=== PATIENT | female | born 1995 | race Caucasian/White ===

== ENCOUNTER 2018-09-13 21:18 | Emergency (ER) | payer MEDICARE, MEDICAID, SELFPAY ==
[2018-09-13 21:32] VITALS: BP 106/57; PULSE 66; RESP 18; TEMP 36.2; O2SAT 97
--- NOTE | 2018-09-13 21:40 | DI.CT_ITS ---
SYMPTOMS/DIAGNOSIS: RIGHT FLANK PAIN RENAL COLIC CT: No priors for comparison. There is a hyperdense focus in the proximal to mid right ureter (series 5 image 222 and series 4 image 38). This may represent a small stone. There is mild prominence of the renal collecting system proximally. No other renal stones are seen. The left kidney shows no evidence of nephrolithiasis or hydronephrosis. The urinary bladder is intact. There is mild diffuse thickening of the wall of the urinary bladder. This may be due to underdistention. An inflammatory or infectious process cannot be excluded. The reproductive organs are unremarkable. The unenhanced visualized portions of the liver, spleen, pancreas, gallbladder and adrenal glands are unremarkable. The aorta is of normal caliber. The bowel shows no evidence of obstruction. No significant abdominal or pelvic adenopathy, ascites or pneumoperitoneum is seen. The bones show no acute abnormality. IMPRESSION: 1. Small hyperdense area seen in the proximal to mid right ureter suspicious for a stone. Mild prominence of the collecting system proximal to this region. 2. Question of diffuse bladder wall thickening; underdistention versus an infectious or inflammatory cystitis.
--- NOTE | 2018-09-13 21:42 | ED.GENADUL_ITS ---
Discharge Plan Disposition Patient Disposition: HOME Condition: Stable Discharge Details Chief Complaint: Abd Prob Clinical Impression: Rt flank pain, UTI (urinary tract infection) Primary Care Provider: Delma Covington V ED Provider: Emile Medina Home Meds and New Rx's Prescriptions: New ciprofloxacin HCl 500 mg tablet 500 mg PO BID Qty: 14 RF: 0 ondansetron 4 mg tablet,disintegrating 4 mg PO TID PRN (Reason: nausea and vomiting) 5 Days Qty: 30 RF: 0 oxycodone 5 mg tablet 5 mg PO Q6H PRN (Reason: pain) Qty: 7 RF: 0 No Action acetazolamide 250 mg tablet 250 mg PO BID Qty: 60 RF: 0 Discharge Instructions Additional Instructions: Your blood work did not show any significant abnormalities. Your cat scan showed a likely urinary tract infection and debris. There is a small chance that the debris is a very small kidney stone but is more likely due to the infection For pain take 1000mg tylenol and 600mg ibuprofen every 6 hours. If you need additional pain relief take 1 oxycodone For nausea take zofran as needed as prescribed Follow up with your primary care provider if symptoms continue in 1-2 weeks if you have severe worsening of pain, persistent vomit return to the emergency department for reevaluation Medical Decision Making 23 yo female has had intermittent right lower back pain today without any trauma, fevers, or chills nor n/v. She has had some mild rlq pain as well.She has no abdominal tenderness on exam at this time so doubt appendicitis. Given location of pain could be muscle spasm vs back strain, but given intermittent nature of the edson and location will obtain renal colic ct to eval for possible kidney stone pt's lab work shows no caute findings, does have blood in urine. Awaiting ct CT shows possible stone fragments vs debris in proximal ureter, and bladder wall thickening. I suspect uti with pyelo, also could have small kidney stone. She is HD stable, tolerating PO and stable for d/c. Will start abx and advised f/u with pcp and return precautions given Differential Diagnosis pyelo, kidney stone, uti, muscle spasm, appendicitis Medical Records Medical records reviewed: Yes I reviewed the patient's medical records. Imaging Data Radiologic Study: Attestation: I personally reviewed and interpreted this imaging study as follows: Imaging: CT Scan Radiologist's impression: IMPRESSION: 1. Mild fullness of the right renal collecting system and proximal ureter, with ill-defined hyperdensity in the proximal-mid ureter, possibly small stone fragments or debris. Otherwise, no definite urinary tract stones identified. 2. Diffuse bladder wall thickening, suggesting lower urinary tract infection/cystitis. Correlate with clinical history and laboratory findings. Lab Data Lab results reviewed: Yes I reviewed the patient's lab results. HPI General Mode of arrival: ambulatory . Date/Time Provider Initiated Documentation: 09/13/18 21:19 . Limitations to Documentation: no limitations . Information obtained by: patient . History of Present Illness 23 year old F presents to the emergency department with the chief complaint of right lower back pain and abdominal pain, described as moderate, with intensity rated at 5. Quality is described as aching, Patient reports no radiation. Patient started experiencing this hour(s) (1) and it has been constant. No relieving factors improve symptom(s), No exacerbating factors reported . Patient did receive the following treatments prior to arrival, none Related Data Home Medications Medication Instructions Recorded Confirmed acetazolamide 250 mg tablet 250 mg PO BID #60 tab 08/07/18 09/13/18 ciprofloxacin HCl 500 mg PO BID #14 tab 09/13/18 ondansetron 4 mg PO TID PRN 5 Days #30 tab 09/13/18 oxycodone 5 mg PO Q6H PRN #7 tab 09/13/18 Previous Rx's Medication Instructions Recorded acetazolamide 250 mg tablet 250 mg PO BID #60 tab 08/07/18 ciprofloxacin HCl 500 mg PO BID #14 tab 09/13/18 ondansetron 4 mg PO TID PRN 5 Days #30 tab 09/13/18 oxycodone 5 mg PO Q6H PRN #7 tab 09/13/18 Allergies Allergy/AdvReac Type Severity Reaction Status Date / Time No Known Allergies Allergy Unverified 09/13/18 21:38 General Stated Complaint: Abd Prob GAGE: 3 Review of Systems Review of Systems All systems reviewed & are unremarkable except as noted in HPI and below Constitutional Denies chills and Denies fever(s) Cardiovascular Denies chest pain and Denies dyspnea Respiratory Denies cough and Denies dyspnea Gastrointestinal Denies abdominal pain, Denies nausea and Denies vomiting Musculoskeletal Denies joint swelling Integumentary/Breasts Denies rash Endocrine Denies heat intolerance PFSH Surgical History Myringotomy w/ PE (pressure equalizing) tubes Tonsillectomy and adenoidectomy Social History Smoking and Tabacco status: Never Exam Const General: no acute distress Orientation: alert HENMT Head: normal to inspection Ears: external ears normal General nose exam: external nose normal Mouth: moist mucous membranes Eyes General: appearance normal, both eyes and all related structures Neck Neck: normal visual inspection Resp Effort & Inspection: normal respiratory effort and able to speak in complete sentences Cardio Rate: regular rate GI Inspection: no abdominal wall ecchymosis Palpation: soft Skin General skin exam: no rashes or lesions noted Neuro General: alert and oriented x3 Extrem General: normal to inspection Psych Mental Status: mental status grossly normal Course Vital Signs Temperature 36.2 C L 09/13/18 21:32 Pulse 66 09/13/18 21:32 Respiratory Rate 18 09/13/18 21:32 Blood Pressure 106/57 L 09/13/18 21:32 Pulse Oximetry 97 09/13/18 21:32 Temperature 36.2 C L 09/13/18 21:32 Temperature Source Temporal Artery Scan 09/13/18 21:32 Pulse 66 09/13/18 21:32 Respiratory Rate 18 09/13/18 21:32 Respiratory Effort 09/13/18 21:32 Blood Pressure 106/57 L 09/13/18 21:32 Pulse Oximetry 97 09/13/18 21:32 Oxygen Delivery Method Room Air 09/13/18 21:32 Oxygen Flow Rate 0 09/13/18 21:32 Pain Level 9 09/13/18 21:32 Comment 09/13/18 21:32
[2018-09-13 22:05] LABS: Abs Immature Grans 0.04 k/cumm (0.0-0.09); Absolute Eosinophil Count 0.16 k/cumm (0.0-0.7); Basophils % 0.3; HCT 39.4 % (36.0-46.0); HGB 12.9 g/dL (12.0-15.5); Immature Grans % 0.3; Lymphocytes % 30.1; Mean Corp. HGB Concentration 32.7 g/dL (32.0-36.0); Mean Corpuscular Hemoglobin 28.9 pg (27.0-33.0); Mean Corpuscular Volume 88.1 fL (80-95); Mean Platelet Volume 10.5 fL (8.0-11.0); Monocytes % 7.5; Neutrophils % 60.8; Platelet Count 326 x1000/uL (130-400); RBC 4.47 m/cumm (4.00-5.20); RBC Distribution Width 14.6 % (11.7-14.6); White Blood Cell Count 15.96 k/cumm (4.4-10.8)
[2018-09-13 22:18] LABS: Absolute Basophil Count 0.05 k/cumm (0.0-0.2)
[2018-09-13] MEDS: Ketorolac 15 MG/ML VIAL IVP ×2 (22:21→22:55)
[2018-09-13] MEDS: Normal Saline 1,000 ML 1000 ML IV (22:23)
[2018-09-13 22:29] LABS: ALT 14 U/L (12-78); AST 9 U/L (15-37); Albumin 3.8 g/dL (3.4-5.0); Alkaline Phosphatase 72 U/L (46-116); Anion Gap 13.2 mmol/L (3-11); BUN 12 mg/dL (7-18); Bilirubin, Direct 0.06 mg/dL (0.00-0.20); Bilirubin, Total 0.2 mg/dL (0.2-1.0); CO2 22.8 mmol/L (21.0-32.0); CREATININE 0.83 mg/dL (0.55-1.02); Chloride 107 mmol/L (98-107); Glucose 117 mg/dL (70-100); Lipase 225 U/L (73-393); Potassium 3.2 mmol/L (3.5-5.1); Sodium 143 mmol/L (136-145); Total Protein 8.1 g/dL (6.4-8.2)
[2018-09-13 22:37] LABS: Calcium 8.7 mg/dL (8.5-10.1)
[2018-09-13 22:42] LABS: Bilirubin Negative (Negative); Blood Large (Negative); Clarity Clear; Glucose Negative (Negative); Ketones Trace mg/dL (Negative); Leukocyte Esterase Small (Negative); Nitrite Negative (Negative); Specific Gravity 1.025 (1.005-1.025); pH 6.5 (5-8)
[2018-09-13 22:50] LABS: Bacteria Few HPF (Negative); C & S Indicated? No/Sq. Contamination; Casts 10-20 Hyaline LPF (Negative); Crystals Negative HPF (Negative); Epithelial Cells Many HPF (Negative); Mucus Negative (Negative); RBC 20-50 (0-2)
--- NOTE | 2018-09-13 23:16 | DI.VRAD_ITS ---
EXAM: CT Abdomen and Pelvis Without Contrast EXAM DATE/TIME: 09/13/2018 9:40 PM CLINICAL HISTORY: 23 years old, female; Pain; Other: RT flank pain TECHNIQUE: Axial computed tomography images of the abdomen and pelvis without contrast. Coronal and sagittal reformatted images were created and reviewed. COMPARISON: No relevant prior studies available. FINDINGS: Lower thorax: No acute findings. ABDOMEN: Liver: Normal. No mass. Gallbladder and bile ducts: Normal. No calcified stones. No ductal dilation. Pancreas: Normal. No ductal dilation. Spleen: Normal. No splenomegaly. Adrenals: Normal. No mass. Kidneys and ureters: There is mild fullness of the right renal collecting system and proximal ureter. Subtle hyperdense area in the proximal-mid right ureter (series 4, image 38), possibly small stone fragments or debris. Otherwise, no definite urinary tract stones are seen. The unenhanced kidneys are otherwise unremarkable. Stomach and bowel: Normal. No obstruction. No mucosal thickening. Appendix: No evidence of appendicitis. PELVIS: Bladder: The urinary bladder is incompletely distended, with greater than expected diffuse wall thickening, suggesting lower urinary tract infection/cystitis. No calcified stones are seen. Reproductive: Unremarkable as visualized. ABDOMEN and PELVIS: Intraperitoneal space: Normal. No free air. No significant fluid collection. Bones/joints: No acute fracture. No dislocation. Soft tissues: Unremarkable. Vasculature: Normal. No abdominal aortic aneurysm. Lymph nodes: Normal. No enlarged lymph nodes. IMPRESSION: 1. Mild fullness of the right renal collecting system and proximal ureter, with ill-defined hyperdensity in the proximal-mid ureter, possibly small stone fragments or debris. Otherwise, no definite urinary tract stones identified. 2. Diffuse bladder wall thickening, suggesting lower urinary tract infection/cystitis. Correlate with clinical history and laboratory findings. Dictated and Authenticated by: Jake Oleary MD. Ordering:LEMUEL Baptiste MD
[2018-09-13] MEDS: oxyCODONE 5 MG TAB PO (23:38)
[2018-09-13] MEDS: oxyCODONE 5 MG TAB 10 MG PO (23:39)
[2018-09-13] MEDS: Ondansetron O.D.T. 4 MG TABEF PO (23:40)
[2018-09-13] MEDS: Ciprofloxacin 500 MG TAB PO (23:40)
[2018-09-13] MEDS: Ondansetron 4 MG/2 ML VIAL IVP (23:55)
[2018-09-14 00:39] VITALS: BP 110/58; PULSE 70; RESP 18; O2SAT 99
== END 2018-09-14 00:35 | disposition home or self-care (01) ==
PROVIDERS: Emergency Provider Emergency Medicine; PCP Pediatrics
DX: R10.9 Unspecified abdominal pain (principal); N39.0 Urinary tract infection, site not specified
CPT/HCPCS: 36415; 80053; 80076; 83690; 96361; 96374; 96375; 96376; 99284; 74176; 81003; 81015; 85025; J1885; J2405

== ENCOUNTER → 2018-10-28 14:14 | Outpatient (BNVA) | payer MEDICARE, MEDICAID, SELFPAY | PROVIDERS: PCP Pediatrics; Visit Provider Psychiatry & Neurology Neurology | DX: H93.293 Other abnormal auditory perceptions, bilateral (principal); F84.0 Autistic disorder | CPT/HCPCS: 99205; 99215 ==

== ENCOUNTER 2019-03-06 14:47 | Emergency (ER) | payer MEDICARE, MEDICAID, SELFPAY ==
[2019-03-06 14:55] VITALS: BP 125/99; PULSE 106; RESP 16; TEMP 36.8; O2SAT 97
[2019-03-06] MEDS: Ibuprofen 600 MG TAB PO (15:49)
--- NOTE | 2019-03-06 16:05 | W.ED.GENAD ---
Discharge Plan Disposition Patient Disposition: HOME Condition: Stable Discharge Details Chief Complaint: EarProblem Clinical Impression: Otalgia of left ear, Anxiety, Abnormal auditory perception Primary Care Provider: Delma Covington V ED Provider: Dandre Quesada Home Meds and New Rx's Prescriptions: Continued acetazolamide 250 mg tablet 250 mg PO BID Qty: 180 RF: 3 Discharge Instructions Instructions: Earache (ED) Additional Instructions: You may continue to take [id number] pain medication as needed for discomfort. Return immediately if you have any new or significant worsening of symptoms or if your symptoms do not improve. Otherwise follow-up with your primary care provider or neurologist for reassessment Referrals: Delma Covington MD [Primary Care Provider] - (As needed for reassessment) Medical Decision Making Patient presenting the emergency department chief complaint of otalgia. This started approximately 1 hour prior to arrival. Patient has history of abnormal ear sensation and feeling like there are bubbles in her ear. Patient is seen neurology and upon review of their notes feel this is secondary to anxiety and/or possible migraines the patient's takes acetazolamide for. Physical exam is completely unremarkable, no HEENT findings, normal cranial nerve exam, patient is otherwise unremarkable. Patient given ibuprofen for pain control. Differential diagnosis to include serous otitis media, atypical migraine, eustachian tube dysfunction. At this point I do not feel there are any other emergent treatments needed. Close return precautions were discussed with patient. After discussion of diagnosis and plan of care patient has no further needs, questions, or concerns and states clear understanding to return to the emergency department for any worsening symptoms. [facility] General Mode of arrival: ambulatory. Date/Time Provider Initiated Documentation: 03/06/19 15:03. Limitations to Documentation: no limitations. Information obtained by: patient and RN notes reviewed. History of Present Illness 23 year old F presents to the emergency department with the chief complaint of Left ear pain, described as severe and similar to prior episodes, with intensity rated at 10. Quality is described as sharp, and is localized to the left (ear). Patient started experiencing this hour(s) (1) Patient notes no other symptoms.. Patient did receive the following treatments prior to arrival, none Related Data Home Medications Medication Instructions Recorded Confirmed acetazolamide 250 mg tablet 250 mg PO BID #180 tab 10/28/18 03/06/19 Previous Rx's Medication Instructions Recorded acetazolamide 250 mg tablet 250 mg PO BID #180 tab 10/28/18 Allergies Allergy/AdvReac Type Severity Reaction Status Date / Time No Known Allergies Allergy Unverified 03/06/19 15:01 General Stated Complaint: EarProblem GAGE: 3 Review of Systems Constitutional Denies chills, Denies fever(s) and Denies headache(s) ENT Denies dental pain, Denies vertigo, Denies dizziness, Reports otalgia, Denies headache(s) and Denies sore throat Cardiovascular Denies chest pain and Denies dyspnea Respiratory Denies dyspnea Neurologic Denies vertigo, Denies dizziness and Denies headache(s) [facility] Medical History Abnormal auditory perception (Acute 06/29/13) Anxiety (Acute 08/20/12) Asperger's disorder (Acute 08/20/12) Pseudotumor cerebri (Acute 11/03/13) Subjective tinnitus (Acute 06/29/13) Surgical History Myringotomy w/ PE (pressure equalizing) tubes Tonsillectomy and adenoidectomy Family History Mother Tinnitus Hypertension Hyperlipidemia COPD (chronic obstructive pulmonary disease) Father COPD (chronic obstructive pulmonary disease) Social History Smoking/Tobacco Use Status: Never Alcohol Intake: never Drug use: Never Substance use type: does not use Household members: family Education Level: high school Details: Completed 9th grade and some 10th grade current occupation: Disabled Do you feel safe at home: Yes Do you feel safe in your relationship?: Yes Exam Const General: cooperative, healthy appearing and anxious Orientation: alert, awake and oriented x3 HENMT Head: normal to inspection Ears: hearing grossly normal bilaterally, external ears normal, TM's normal bilaterally, EAC's normal and mastoids normal General nose exam: external nose normal and nares normal Face and sinus: normal facial exam Mouth: oral mucosae normal and moist mucous membranes Throat: posterior oropharynx normal, tonsils normal and uvula midline Eyes Visual Chong: normal visual chong by confrontation Alignment and Position: alignment normal Periorbital: periorbital findings normal Eyelids: eyelids normal Sclera: sclerae normal Cornea: corneas normal Pupils: PERRL EOM: EOM intact bilaterally Neck Neck: normal visual inspection, full ROM, no lymphadenopathy and no meningeal signs Cardio Rate: regular rate Rhythm: regular rhythm Heart Sounds: S1 normal and S2 normal Neuro General: alert, awake, oriented x3, gait normal, tone normal, moves all extremities, CN's II-XI intact bilaterally and not confused Cognition: normal cognition Speech: speech normal Motor: muscle tone normal throughout, strength 5/5 throughout, no pronator drift and no movement abnormalities noted Sensory Exam: no sensory deficits noted Coordination: Romberg test normal and Does not sway with eyes open Course Vital Signs Temperature 36.8 C 03/06/19 14:55 Pulse 106 H 03/06/19 14:55 Respiratory Rate 16 03/06/19 14:55 Blood Pressure 125/99 H 03/06/19 14:55 Pulse Oximetry 97 03/06/19 14:55 Temperature 36.8 C 03/06/19 14:55 Temperature Source Skin 03/06/19 14:55 Pulse 106 H 03/06/19 14:55 Respiratory Rate 16 03/06/19 14:55 Respiratory Effort 03/06/19 15:02 Blood Pressure 125/99 H 03/06/19 14:55 Blood Pressure Position Sitting 03/06/19 14:55 Pulse Oximetry 97 03/06/19 14:55 Oxygen Delivery Method Room Air 03/06/19 14:55 Oxygen Flow Rate 0 03/06/19 14:55 Pain Level 10 03/06/19 15:04 Comment no relief 03/06/19 14:55
== END 2019-03-06 16:30 | disposition home or self-care (01) ==
PROVIDERS: Emergency Provider Nurse Practitioner Family; PCP Pediatrics
DX: F41.9 Anxiety disorder, unspecified; H93.292 Other abnormal auditory perceptions, left ear; H92.02 Otalgia, left ear
CPT/HCPCS: 99283

== ENCOUNTER → 2020-06-23 08:58 | Outpatient (BNVA) | payer MEDICARE, MEDICAID, SELFPAY | PROVIDERS: PCP Pediatrics; Referring Provider Pediatrics; Visit Provider Psychiatry & Neurology Neurology | DX: H93.299 Other abnormal auditory perceptions, unspecified ear (principal); H93.19 Tinnitus, unspecified ear; R51.9 Headache, unspecified | CPT/HCPCS: 99213; 99441 ==

== ENCOUNTER 2020-10-11 13:07 | Emergency (ER) | payer MEDICARE, MEDICAID, SELFPAY ==
[2020-10-11 13:14] VITALS: BP 145/89; PULSE 120; RESP 16; TEMP 36.7; O2SAT 96
--- NOTE | 2020-10-11 13:51 | ED.GENADUL_ITS ---
Discharge Plan Disposition Patient Disposition: HOME Condition: Stable Discharge Details Clinical Impression: Acute otitis media, right Primary Care Provider: Delma Covington V ED Provider: Shahid White Home Meds and New Rx's Prescriptions: New amoxicillin-pot clavulanate [Augmentin] 875-125 mg tablet 1 tab PO BID Qty: 13 RF: 0 Continued acetazolamide 250 mg tablet 250 mg PO BID Qty: 180 RF: 3 Discharge Instructions Instructions: Ear Infection (ED) Additional Instructions: Please take full course of antibiotic as prescribed. Please contact your primary care physician to arrange follow-up. If pain persist, please follow-up with a gear room keeper. Return to the ER for any worsening or new concerning symptoms. Referrals: Eliseo Adamson MD [ [facility]FF [facility]YSICIAN] - Discharge Data Discharge Date/Time-TO BE ENTERED AT DEPARTURE: 10/11/20 14:25 Medical Decision Making 25-year-old female here with greater than 1 week of right ear pain and fullness. Patient has bulging TM on exam with no significant effusion. Given length of symptoms and worsening pain, plan to cover with antibiotics. Patient was instructed to complete the full course of antibiotic as prescribed and to follow-up with ENT if pain were to persist. She was encouraged to return immediately for any worsening or new concerning symptoms. HPI General Mode of arrival: ambulatory . Date/Time Provider Initiated Documentation: 10/11/20 13:51 . Limitations to Documentation: no limitations . Information obtained by: patient . HPI Narrative: 25-year-old female here with right ear pain. Patient has she had ear pain for over a week. States it feels full and hurts. Pain is mild to moderate. Constant. Took Tylenol earlier today which did not help significantly. She has no associated fever. Related Data Home Medications Medication Instructions Recorded Confirmed acetazolamide 250 mg tablet 250 mg PO BID #180 tab 06/23/20 10/11/20 amoxicillin-pot clavulanate 1 tab PO BID #13 tab 10/11/20 [Augmentin] Previous Rx's Medication Instructions Recorded acetazolamide 250 mg tablet 250 mg PO BID #180 tab 06/23/20 amoxicillin-pot clavulanate 1 tab PO BID #13 tab 10/11/20 [Augmentin] Allergies Allergy/AdvReac Type Severity Reaction Status Date / Time No Known Allergies Allergy Unverified 06/23/20 12:42 General Stated Complaint: EarProblem GAGE: 4 Review of Systems Constitutional Constitutional: Denies fever(s) and Denies headache(s) ENT Ears, Nose, Mouth, and Throat: Reports as per HPI, Denies headache(s) and Denies throat swelling Respiratory Respiratory: Denies cough Integumentary/Breasts Skin/Breast: Denies rash Neurologic Neurologic: Denies headache(s) Allergic/Immunologic Allergic/Immunologic: Denies throat swelling PFSH Medical History Abnormal auditory perception (06/29/13) Anxiety (08/20/12) some depression Asperger's disorder (08/20/12) Pseudotumor cerebri (11/03/13) evaluated for in 2013 with borderline elevated OP of 31 secondary to obesity and otherwise negative MRI/ophtho exam; Subjective tinnitus (06/29/13) Surgical History Myringotomy w/ PE (pressure equalizing) tubes Tonsillectomy and adenoidectomy Family History Mother Tinnitus Hypertension Hyperlipidemia COPD (chronic obstructive pulmonary disease) Father COPD (chronic obstructive pulmonary disease) Social History Smoking/Tobacco Use Status: Never Smoking risk assessment performed?: Yes Alcohol Intake: never Drug use: Never Substance use type: does not use Household members: family Education Level: high school Details: Completed 9th grade and some 10th grade current occupation: Disabled Seatbelt use: always Do you feel safe at home: Yes Do you feel safe in your relationship?: Yes Exam Const General: cooperative and no acute distress HENMT Head: normocephalic and atraumatic Ears: external ears normal, TM normal on the left, EAC's normal, mastoids normal, no periauricular adenopathy and TM abnormal bulging on the right; not with effusion and not erythematous General nose exam: external nose normal Face and sinus: normal facial exam Mouth: moist mucous membranes Throat: posterior oropharynx normal Eyes Sclera: normal sclerae EOM: EOM intact bilaterally Neck Neck: trachea midline and supple Resp Auscultation: clear to auscultation bilaterally, no rales, no rhonchi and no wheezes Cardio Jugular venous pressure: no JVD Rate: regular rate and not tachycardic Rhythm: regular rhythm Skin General skin exam: no rashes or lesions noted Neuro General: patient alert, patient awake, patient oriented x3 and tone normal Course Vital Signs Vital signs: Vital Signs Temperature 36.7 C 10/11/20 13:14 Pulse 120 H 10/11/20 13:14 Respiratory Rate 16 10/11/20 13:14 Blood Pressure 145/89 H 10/11/20 13:14 Pulse Oximetry 96 10/11/20 13:14 Temperature 36.7 C 10/11/20 13:14 Temperature Source Skin 10/11/20 13:14 Pulse 120 H 10/11/20 13:14 Respiratory Rate 16 10/11/20 13:14 Blood Pressure 145/89 H 10/11/20 13:14 Pulse Oximetry 96 10/11/20 13:14 Oxygen Delivery Method Room Air 10/11/20 13:14 Oxygen Flow Rate 0 10/11/20 13:14 Pain Level 5 10/11/20 13:14
[2020-10-11 14:08] VITALS: PULSE 102
[2020-10-11] MEDS: Amoxicillin 875/Clav. 125 TAB PO (14:20)
[2020-10-11] MEDS: Ibuprofen 600 MG TAB PO (14:20)
--- NOTE | 2020-10-11 14:20 | NUR.NOTE ---
Referral to Care Management for patient to establish PCP. Routine.Nursing Note:
--- NOTE | 2020-10-11 14:21 | NUR.NOTE ---
PATIENT MEDICATED PER MD ORDER. PATIENT PUT ON PCP LIST. Nursing Note:
== END 2020-10-11 14:25 | disposition home or self-care (01) ==
PROVIDERS: Emergency Provider Student in an Organized Health Care Education/Training Program; PCP Pediatrics
DX: H66.91 Otitis media, unspecified, right ear (principal)
CPT/HCPCS: 99283

== ENCOUNTER 2021-02-09 20:14 | Emergency (ER) | payer MEDICARE, MEDICAID, SELFPAY ==
[2021-02-09 20:21] VITALS: BP 149/94; PULSE 112; RESP 18; TEMP 36.4; O2SAT 96
--- NOTE | 2021-02-09 20:28 | W.ED.GENAD ---
Discharge Plan Disposition Patient Disposition: HOME Condition: Stable Discharge Details Clinical Impression: Urinary tract infection Primary Care Provider: Delma Covingotn V ED Provider: Collette Strickland Home Meds and New Rx's Prescriptions: New cephalexin 500 mg tablet 500 mg PO BID 7 Days Qty: 14 RF: 0 No Action acetazolamide 250 mg tablet 250 mg PO BID Qty: 180 RF: 3 Discharge Instructions Instructions: Urinary Tract Infection in Women (ED) Additional Instructions: Take antibiotic twice a day as directed please take all the antibiotic even if you are feeling better. Take the Pyridium once every 8 hours as needed for pain, this will turn your urine bright orange and may stain your clothes. Follow up with primary care provider in 3-5 days. Return to ED sooner if any worsening pain, fever, vomiting or concerns. Increase oral fluids. Please take Tylenol or Ibuprofen with food every 4-6 hours as needed for pain and swelling. Referrals: Delam Covington MD [Primary Care Provider] - Discharge Data Discharge Date/Time-TO BE ENTERED AT DEPARTURE: 02/09/21 20:55 Medical Decision Making 25-year-old female presents the ER chief complaint of dysuria lower abdominal pressure on and off for couple weeks. Initially CBC CMP ordered to rule out pyelonephritis however patient denies any vomiting. She does have some mild left CVA tenderness with palpation. Patient would prefer not to have labs drawn if possible. We will hold off on this at this time awaiting urinalysis patient is tolerating oral fluids without difficulty. Urine is positive for large leukocytes, small blood micro is pending at this time. Cephalexin 500 mg p.o. and Pyridium 100 mg ordered at this time. Micro urinalysis shows 3-5 RBCs greater than 50 WBCs positive epithelial cells and squamous contamination. However due to patient's symptoms we will treat for urinary tract infection. Cephalexin prescription was given and instructed to follow-up within 3 to 5 days. Discussed strict return instructions, verbalized understanding. This text was generated using ScaleDBation system, please disregard any oddities of phrase or misspellings. HPI General Mode of arrival: ambulatory. Date/Time Provider Initiated Documentation: 02/09/21 20:16. Limitations to Documentation: no limitations. Information obtained by: patient. HPI Narrative: 25-year-old female presents the ER chief complaint of dysuria mild back pain which she reports has been on and off for the last couple weeks worse today. She reports taking ibuprofen this morning. Denies vomiting no fever no chills. Does have some mild left lower quadrant abdominal tenderness with palpation. She does have a history of Asperger's disorder, anxiety. She is slightly tachycardic upon arrival. Related Data Home Medications Medication Instructions Recorded Confirmed acetazolamide 250 mg tablet 250 mg PO BID #180 tab 06/23/20 02/09/21 cephalexin 500 mg PO BID 7 Days #14 tab 02/09/21 Previous Rx's Medication Instructions Recorded acetazolamide 250 mg tablet 250 mg PO BID #180 tab 06/23/20 cephalexin 500 mg PO BID 7 Days #14 tab 02/09/21 Allergies Allergy/AdvReac Type Severity Reaction Status Date / Time No Known Allergies Allergy Unverified 06/23/20 12:42 General Stated Complaint: Urinary GGAE: 3 Review of Systems All systems reviewed & are unremarkable except as noted in HPI and below Genitourinary Genitourinary: Denies abnormal vaginal bleeding, Reports dysuria and Denies vaginal discharge Comments: Denies any vaginal discharge or concern for STD [facility] Medical History Abnormal auditory perception (06/29/13) Anxiety (08/20/12) some depression Asperger's disorder (08/20/12) Pseudotumor cerebri (11/03/13) evaluated for in 2013 with borderline elevated OP of 31 secondary to obesity and otherwise negative MRI/ophtho exam; Subjective tinnitus (06/29/13) Surgical History Myringotomy w/ PE (pressure equalizing) tubes Tonsillectomy and adenoidectomy Family History Mother Tinnitus Hypertension Hyperlipidemia COPD (chronic obstructive pulmonary disease) Father COPD (chronic obstructive pulmonary disease) Social History Smoking/Tobacco Use Status: Never Smoking risk assessment performed?: Yes Alcohol Intake: never Drug use: Never Substance use type: does not use Household members: family Education Level: high school Details: Completed 9th grade and some 10th grade current occupation: Disabled Seatbelt use: always Do you feel safe at home: Yes Do you feel safe in your relationship?: Yes Exam Narrative Exam Narrative: Constitutional: Alert and oriented x3. Appears stated age. Normal body habitus. Patient is disheveled. Head: Normocephalic, no trauma. Eyes: Pupils PERRLA, Red reflex noted, EOM's intact. Eyelids symmetrical without lesions, discharge, or swelling. ENT: Bilateral TM's WNL, External ear normal to inspection, no mastoid TTP, swelling, or erythema, Nasal turbinates WNL, no nasal discharge. Normal dentition, Posterior pharynx WNL, no exudate. Chest: RRR, Normal S1, S2, distal pulses intact. Resp: Lungs clear to auscultation bilaterally, no wheezes, rales, or rhonchi. Musculoskeletal: Normal gait, 5/5 strength to all four extremities. Abdomen: Soft, nondistended mild tenderness left lower quadrant with palpation and suprapubic tenderness with palpation. Skin: No suspicious rashes or lesions. Capillary refill less than 2 sec. Neurologic: Cranial nerves II-XII intact. Alert and oriented x 3. DTR's intact. Hematologic/Lymphatic: No ecchymosis, no lymphadenopathy. Course Vital Signs Vital signs: Vital Signs Temperature 36.4 C L 02/09/21 20:21 Pulse 112 H 02/09/21 20:21 Respiratory Rate 18 02/09/21 20:21 Blood Pressure 149/94 H 02/09/21 20:21 Pulse Oximetry 96 02/09/21 20:21 Temperature 36.4 C L 02/09/21 20:21 Temperature Source Temporal Artery Scan 02/09/21 20:21 Pulse 112 H 02/09/21 20:21 Respiratory Rate 18 02/09/21 20:21 Blood Pressure 149/94 H 02/09/21 20:21 Blood Pressure Position Sitting 02/09/21 20:21 Pulse Oximetry 96 02/09/21 20:21 Oxygen Delivery Method Room Air 02/09/21 20:21 Oxygen Flow Rate 0 02/09/21 20:21 Pain Level 5 02/09/21 20:21
[2021-02-09 20:40] LABS: Bilirubin Negative (Negative); Blood Small (Negative); Clarity Cloudy (Clear); Glucose Negative (Negative); Ketones Negative (Negative); Leukocyte Esterase Large (Negative); Nitrite Negative (Negative); Specific Gravity 1.015 (1.005-1.025); Urobilinogen 0.2 EU/dL (Up TO 0.2); pH 6.5 (5-8)
[2021-02-09 20:49] LABS: Bacteria Many HPF (Negative); C & S Indicated? No/Sq. Contamination; Casts Negative LPF (Negative); Crystals Negative HPF (Negative); Epithelial Cells Many HPF (Negative); Mucus Negative (Negative); WBC >50 HPF (0-5)
[2021-02-09] MEDS: Phenazopyridine 100 MG TAB, 2 TABS/BTL PO (20:55)
[2021-02-09] MEDS: Phenazopyridine 100 MG TAB PO (20:55)
[2021-02-09] MEDS: Cephalexin 500 MG CAP PO (20:55)
[2021-02-09 20:56] VITALS: BP 124/76; PULSE 84; RESP 18; TEMP 36.8; O2SAT 98
== END 2021-02-09 20:55 | disposition home or self-care (01) ==
PROVIDERS: Emergency Provider Registered Nurse Emergency; PCP Pediatrics
DX: N39.0 Urinary tract infection, site not specified (principal)
CPT/HCPCS: 80053; 99283; 81003; 81015; 85025

== ENCOUNTER → 2021-06-22 13:09 | Outpatient (BNVA) | payer MEDICARE, MEDICAID, SELFPAY | PROVIDERS: Referring Provider Pediatrics; Visit Provider Psychiatry & Neurology Neurology | DX: H93.293 Other abnormal auditory perceptions, bilateral (principal); H93.13 Tinnitus, bilateral; R51.9 Headache, unspecified | CPT/HCPCS: 99213 ==

== ENCOUNTER 2021-07-19 08:22 | Emergency (ER) | payer MEDICARE, MEDICAID, SELFPAY ==
[2021-07-19 08:31] VITALS: BP 134/90; PULSE 116; RESP 16; TEMP 36.5; O2SAT 99
--- NOTE | 2021-07-19 08:42 | ED.GENADUL_ITS ---
Discharge Plan Disposition Patient Disposition: HOME Condition: Stable Discharge Details Clinical Impression: Pain due to dental caries Primary Care Provider: None,None ED Provider: Collette Strickland Home Meds and New Rx's Prescriptions: No Action acetazolamide 250 mg tablet 250 mg PO BID Qty: 180 RF: 3 Discharge Instructions Instructions: Dental Caries (ED) Additional Instructions: Please call dentist as soon as possible to make an appointment. Practice good oral hygiene. [place] twice a day. Rinse your mouth after eating or drinking anything. Use the Hurricaine gel to the area up to 3 times daily as needed. Take antibiotics as directed twice daily. Eat yogurt or take a probiotic while taking the antibiotics. Please take Tylenol or Ibuprofen with food every 4-6 hours as needed for pain and swelling. Follow up with primary care provider in 3-5 days. Return to ED sooner if any worsening or concerns. Increase oral fluids. Discharge Data Discharge Date/Time-TO BE ENTERED AT DEPARTURE: 07/19/21 09:24 Medical Decision Making 26-year-old female presents with left upper dental pain. She does have a dental carry noted. No surrounding fluctuance or signs of abscess. No evidence for Mu angina. She is speaking full sentences. She does not have a dentist. Patient was given Hurricaine topical gel, ibuprofen and penicillin. She does however report that she is unable to swallow pills so the orders were changed to liquid. Patient to be discharged and was given dental resources and instructed to follow-up with dentist. This text was generated using [id number] dictation system, please disregard any oddities of phrase or misspellings. HPI General Mode of arrival: ambulatory . Date/Time Provider Initiated Documentation: 07/19/21 08:22 . Limitations to Documentation: no limitations . Information obtained by: patient, RN notes reviewed and old records reviewed . HPI Narrative: 26-year-old female presents to the ER with chief complaint of left upper dental pain which got worse this morning. Patient reports that she is has a known cavity and it has been bothering her for approximately a week. She does not currently have a dentist. There is no area of fluctuance or signs of abscess. She denies any other associated symptoms. She has a past medical history of Asperger's, anxiety and pseudotumor cerebri. She last took some Tylenol approximately an hour prior to arrival. Related Data Home Medications Medication Instructions Recorded Confirmed acetazolamide 250 mg tablet 250 mg PO BID #180 tab 06/13/21 07/19/21 Previous Rx's Medication Instructions Recorded acetazolamide 250 mg tablet 250 mg PO BID #180 tab 06/13/21 Allergies Allergy/AdvReac Type Severity Reaction Status Date / Time No Known Allergies Allergy Unverified 07/19/21 08:34 General Stated Complaint: DentalOral GAGE: 4 Review of Systems All systems reviewed & are unremarkable except as noted in HPI and below ENT Ears, Nose, Mouth, and Throat: Reports as per HPI, Denies change in voice, Reports dental pain and Denies dysphagia Gastrointestinal Gastrointestinal: Denies dysphagia PFSH All Active Problems (Updated 07/19/21 @ 08:47 by Collette Strickland) Pain due to dental caries (Acute) Acute otitis media, right (Acute) Urinary tract infection (Acute) Headache (Acute) Abnormal auditory perception (Acute 06/29/13) Anxiety (Acute 08/20/12) Asperger's disorder (Acute 08/20/12) Subjective tinnitus (Acute 06/29/13) Medical History Pseudotumor cerebri (11/03/13) evaluated for in 2013 with borderline elevated OP of 31 secondary to obesity and otherwise negative MRI/ophtho exam; Surgical History Myringotomy w/ PE (pressure equalizing) tubes Tonsillectomy and adenoidectomy Family History Mother Tinnitus Hypertension Hyperlipidemia COPD (chronic obstructive pulmonary disease) Father COPD (chronic obstructive pulmonary disease) Social History Smoking/Tobacco Use Status: Never Smoking risk assessment performed?: Yes Alcohol Intake: never Drug use: Never Substance use type: does not use Household members: family Education Level: high school Details: Completed 9th grade and some 10th grade current occupation: Disabled Seatbelt use: always Do you feel safe at home: Yes Do you feel safe in your relationship?: Yes Exam HENMT Mouth: oral mucosae normal, lip normal and tongue normal Teeth and gingiva: gingiva normal, abnormal tooth or associated gingiva and fair dentition Teeth image: 1. Dental carry noted. Mild surrounding erythema of the gingiva. No area of fluctuance or signs of abscess. Throat: posterior oropharynx normal Course Vital Signs Vital signs: Vital Signs Temperature 36.5 C 07/19/21 08:31 Pulse 116 H 07/19/21 08:31 Respiratory Rate 16 07/19/21 08:31 Blood Pressure 134/90 07/19/21 08:31 Pulse Oximetry 99 07/19/21 08:31 Temperature 36.5 C 07/19/21 08:31 Temperature Source Skin 07/19/21 08:31 Pulse 116 H 07/19/21 08:31 Respiratory Rate 16 07/19/21 08:31 Blood Pressure 134/90 07/19/21 08:31 Blood Pressure Position Sitting 07/19/21 08:31 Pulse Oximetry 99 07/19/21 08:31 Oxygen Delivery Method Room Air 07/19/21 08:31 Oxygen Flow Rate 0 07/19/21 08:31 Pain Level 10 07/19/21 08:31
[2021-07-19] MEDS: Ibuprofen 100 MG/5 ML CUP 400 MG PO (09:08)
[2021-07-19] MEDS: Benzocaine 20% Gel 30 GM JAR MM (09:08)
== END 2021-07-19 09:24 | disposition home or self-care (01) ==
PROVIDERS: Emergency Provider Registered Nurse Emergency
DX: R68.84 Jaw pain (principal); K02.9 Dental caries, unspecified
CPT/HCPCS: 99283

== ENCOUNTER 2021-11-17 14:19 | Emergency (ER) | payer MEDICARE, MEDICAID, SELFPAY ==
[2021-11-17 14:23] VITALS: BP 127/81; PULSE 102; RESP 18; TEMP 37.1; O2SAT 99
--- NOTE | 2021-11-17 14:31 | ED.GENADUL_ITS ---
Discharge Plan Disposition Patient Disposition: HOME Condition: Stable Discharge Details Clinical Impression: Urinary tract infection Primary Care Provider: None,None ED Provider: Collette Strickland Home Meds and New Rx's Prescriptions: New cephalexin 500 mg tablet 500 mg PO BID 7 Days Qty: 14 0RF No Action acetazolamide 250 mg tablet 250 mg PO BID Qty: 180 3RF Discharge Instructions Instructions: Urinary Tract Infection in Women (ED) Additional Instructions: Take antibiotic as directed with yogurt or probiotic. Take the Pyridium as directed this may turn your urine bright orange. Please wipe front to back to decrease incidence of urinary tract infection, urinate after intercourse. Discussed with your PCP regarding your recurrent urinary tract infections. Follow up with primary care provider in 3-5 days. Return to ED sooner if any worsening vomiting, fever, pain or concerns. Increase oral fluids. You are placed on care management list to have help getting PCP established should be hearing from care management within the next 3 to 5 days. Medical Decision Making 26-year-old female presents to the ER with chief complaint left lower back pain which began 2 to 3 days ago today got worse radiating around to her left groin and reports some dysuria. Reports nausea no vomiting. Denies any fever she reports that she has had frequent urinary tract. Past medical history history includes pseudotumor cerebri, Asperger's disorder. Patient denies being on any antibiotics last few months. Urinalysis and urine hCG POC ordered. Urinalysis shows trace blood, positive nitrites small leukocyte. We will give cephalexin and Pyridium. HPI General Mode of arrival: ambulatory . Date/Time Provider Initiated Documentation: 11/17/21 14:19 . Limitations to Documentation: no limitations . Information obtained by: patient, RN notes reviewed and old records reviewed . HPI Narrative: 26-year-old female presents to the ER with chief complaint left lower back pain which began 2 to 3 days ago today got worse radiating around to her left groin and reports some dysuria. Reports nausea no vomiting. Denies any fever she reports that she has had frequent urinary tract. Past medical history history includes pseudotumor cerebri, Asperger's disorder. Patient denies being on any antibiotics last few months. Related Data Home Medications Medication Instructions Recorded Confirmed acetazolamide 250 mg tablet 250 mg PO BID #180 tab 06/13/21 11/17/21 cephalexin 500 mg tablet 500 mg PO BID 7 Days #14 tab 11/17/21 Previous Rx's Medication Instructions Recorded acetazolamide 250 mg tablet 250 mg PO BID #180 tab 06/13/21 cephalexin 500 mg tablet 500 mg PO BID 7 Days #14 tab 11/17/21 Allergies Allergy/AdvReac Type Severity Reaction Status Date / Time No Known Allergies Allergy Unverified 11/17/21 14:27 General Stated Complaint: Nk/Back Pain GAGE: 4 Review of Systems All systems reviewed & are unremarkable except as noted in HPI and below Genitourinary Genitourinary: Reports dysuria PFSH All Active Problems (Updated 11/17/21 @ 14:59 by Collette Strickland) Sensorineural hearing loss, bilateral (Acute) Pain due to dental caries (Acute) Acute otitis media, right (Acute) Urinary tract infection (Acute) Headache (Acute) Abnormal auditory perception (Acute 06/29/13) Anxiety (Acute 08/20/12) some depression Asperger's disorder (Acute 08/20/12) Subjective tinnitus (Acute 06/29/13) Medical History Pseudotumor cerebri (11/03/13) evaluated for in 2014 with borderline elevated OP of 31 secondary to obesity and otherwise negative MRI/ophtho exam; Surgical History Myringotomy w/ PE (pressure equalizing) tubes Tonsillectomy and adenoidectomy Family History Mother Tinnitus Hypertension Hyperlipidemia COPD (chronic obstructive pulmonary disease) Father COPD (chronic obstructive pulmonary disease) Skin cancer Maternal Grandmother Cancer Social History Smoking/Tobacco Use Status: Never Smoking risk assessment performed?: Yes Alcohol Intake: never Drug use: Never Substance use type: does not use Household members: family Education Level: high school Details: Completed 9th grade and some 10th grade current occupation: Disabled Pets and animals: Yes Seatbelt use: always Do you feel safe at home: Yes Do you feel safe in your relationship?: Yes Exam Narrative Exam Narrative: Constitutional: Alert and oriented x3. Appears stated age. Normal body habitus. Head: Normocephalic, no trauma. Eyes: Pupils PERRL, Red reflex noted, EOM's intact. Eyelids symmetrical without lesions, discharge, or swelling. Chest: RRR, Normal S1, S2, distal pulses intact. Resp: Lungs clear to auscultation bilaterally, no wheezes, rales, or rhonchi. Abdomen: Soft, non-distended, Normoactive bowel sounds all 4 quads. Musculoskeletal: Normal gait, 5/5 strength to all four extremities. Course Vital Signs Vital signs: Vital Signs Temperature 37.1 C 11/17/21 14:23 Pulse 102 H 11/17/21 14:23 Respiratory Rate 18 11/17/21 14:23 Blood Pressure 127/81 11/17/21 14:23 Pulse Oximetry 99 11/17/21 14:23 Temperature 37.1 C 11/17/21 14:23 Temperature Source Temporal Artery Scan 11/17/21 14:23 Pulse 102 H 11/17/21 14:23 Respiratory Rate 18 11/17/21 14:23 Respiratory Effort Non-Labored 11/17/21 14:27 Blood Pressure 127/81 11/17/21 14:23 Blood Pressure Position Sitting 11/17/21 14:23 Pulse Oximetry 99 11/17/21 14:23 Oxygen Delivery Method Room Air 11/17/21 14:23 Oxygen Flow Rate 0 11/17/21 14:23
[2021-11-17 14:51] LABS: Bilirubin Negative (Negative); Blood Trace-intact (Negative); Clarity Sl Cloudy (Clear); Glucose Negative (Negative); Ketones Negative (Negative); Leukocyte Esterase Small (Negative); Nitrite Positive (Negative)
[2021-11-17 14:58] LABS: Bacteria Many HPF (Negative); C & S Indicated? No/Sq. Contamination; Casts Negative LPF (Negative); Crystals Negative HPF (Negative); Epithelial Cells Many HPF (Negative); Mucus Trace (Negative)
--- NOTE | 2021-11-17 15:01 | NUR.NOTE ---
Nursing Note: PT INFO GIVEN TO CARE MANAGEMENT TO ESTABLISH CARE. GIANFRANCO, ED
[2021-11-17] MEDS: Phenazopyridine 100 MG TAB PO (15:16)
[2021-11-17] MEDS: Cephalexin 500 MG CAP PO (15:16)
[2021-11-17 15:33] VITALS: BP 123/73; PULSE 99; RESP 18; TEMP 36.9; O2SAT 98
[2021-11-17] MEDS: Phenazopyridine 100 MG TAB, 2 TABS/BTL PO (15:33)
--- NOTE | 2021-11-20 10:04 | PDOC.ERCMACT ---
- If Service Date Differs Date of service: 11/20/21 Time of Service: 10:04 Care Management Activity Note Fernanda is seen in the ED for a urinary tract infection. At the request of ED provider, GENARO coordinates a referral to GINO Gallo, of [facility], on-call provider, to assist Fernanda in obtaining a follow up appointment and in establishing care with a PCP. She has Medicare and Medicaid for insurance.
== END 2021-11-17 15:34 | disposition home or self-care (01) ==
PROVIDERS: Emergency Provider Registered Nurse Emergency
DX: N39.0 Urinary tract infection, site not specified (principal)
CPT/HCPCS: 81025; 99283; 81003; 81015

== ENCOUNTER 2022-01-09 14:49 | Emergency (ER) | payer MEDICARE, MEDICAID, SELFPAY ==
[2022-01-09 14:50] VITALS: BP 134/79; PULSE 91; RESP 16; TEMP 36.8; O2SAT 99
--- NOTE | 2022-01-09 15:08 | W.ED.GENAD ---
Discharge Plan Disposition Patient Disposition: HOME Condition: Stable Discharge Details Clinical Impression: Dental caries extending into dentin Primary Care Provider: None,None ED Provider: Collette Strickland Home Meds and New Rx's Prescriptions: New penicillin V potassium 500 mg tablet 500 mg PO BID Qty: 20 0RF Rx Instructions: Take 1 tablet twice daily with food for 10 days No Action acetazolamide 250 mg tablet 250 mg PO BID Qty: 180 3RF Discharge Instructions Instructions: Cavity Preventive (For the teeth or gums), Dental Caries (ED), Toothache (ED) Additional Instructions: Please practice good oral hygiene. [place] your teeth twice daily. Use the dental wax to cover the area of the cavity that is bothering you. Use the benzocaine gel up to 3 times daily as needed for pain. Take the antibiotic twice daily for 10 days to prevent worsening infection. Please take Tylenol or Ibuprofen with food every 4-6 hours as needed for pain and swelling. You do still need to see a dentist please call and make an appointment. Return to the ER for any facial swelling, fever, inability to open your mouth or any concerns. Referrals: Koffi Villatoro MD [ [facility] STAFF PHYSICIAN] - 1 week Discharge Data Discharge Date/Time-TO BE ENTERED AT DEPARTURE: 01/09/22 15:36 Medical Decision Making 26-year-old female presents to the ER with chief complaint of right-sided dental pain. She reports it began hurting approximately an hour ago. She does have significant dental caries noted to her right upper and lower molars. No surrounding area of fluctuance or evidence of abscess. She reports that she does not remember the last time she went to the dentist. She denies any fever chills chest pain trouble swallowing. Patient took Tylenol prior to arrival. Past medical history includes Asperger's, anxiety, pseudotumor cerebri, PE tubes tonsillectomy and adenoidectomy. No evidence for abscess. We will give patient dental wax for pain, HurriCaine gel and Pen-Vee K 500 mg p.o. Will give dental resources and instructed on good oral hygiene. HPI General Mode of arrival: ambulatory. Date/Time Provider Initiated Documentation: 01/09/22 14:49. Limitations to Documentation: no limitations. Information obtained by: patient, RN notes reviewed and old records reviewed. HPI Narrative: 26-year-old female presents to the ER with chief complaint of right-sided dental pain. She reports it began hurting approximately an hour ago. She does have significant dental caries noted to her right upper and lower molars. No surrounding area of fluctuance or evidence of abscess. She reports that she does not remember the last time she went to the dentist. She denies any fever chills chest pain trouble swallowing. Patient took Tylenol prior to arrival. Past medical history includes Asperger's, anxiety, pseudotumor cerebri, PE tubes tonsillectomy and adenoidectomy. Related Data Home Medications Medication Instructions Recorded Confirmed acetazolamide 250 mg tablet 250 mg PO BID #180 tabs 06/13/21 01/09/22 penicillin V potassium 500 mg 500 mg PO BID toothache #20 tabs 01/09/22 tablet Previous Rx's Medication Instructions Recorded acetazolamide 250 mg tablet 250 mg PO BID #180 tabs 06/13/21 penicillin V potassium 500 mg 500 mg PO BID toothache #20 tabs 01/09/22 tablet Allergies Allergy/AdvReac Type Severity Reaction Status Date / Time No Known Allergies Allergy Unverified 01/09/22 14:53 General Stated Complaint: DentalOral GAGE: 5 Review of Systems ENT Ears, Nose, Mouth, and Throat: Reports as per HPI Comments: Right-sided tooth pain, poor dentition PFSH All Active Problems (Updated 01/09/22 @ 15:23 by Collette Strickland) Dental caries extending into dentin (Acute) Sensorineural hearing loss, bilateral (Acute) Pain due to dental caries (Acute) Acute otitis media, right (Acute) Urinary tract infection (Acute) Headache (Acute) Abnormal auditory perception (Acute 06/29/13) Anxiety (Acute 08/20/12) some depression Asperger's disorder (Acute 08/20/12) Subjective tinnitus (Acute 06/29/13) Medical History Pseudotumor cerebri (11/03/13) evaluated for in 2013 with borderline elevated OP of 31 secondary to obesity and otherwise negative MRI/ophtho exam; Surgical History Myringotomy w/ PE (pressure equalizing) tubes Tonsillectomy and adenoidectomy Family History Mother Tinnitus Hypertension Hyperlipidemia COPD (chronic obstructive pulmonary disease) Father COPD (chronic obstructive pulmonary disease) Skin cancer Maternal Grandmother Cancer Social History Smoking/Tobacco Use Status: Never Smoking risk assessment performed?: Yes Alcohol Intake: never Drug use: Never Substance use type: does not use Household members: family Education Level: high school Details: Completed 9th grade and some 10th grade current occupation: Disabled Pets and animals: Yes Seatbelt use: always Do you feel safe at home: Yes Do you feel safe in your relationship?: Yes Exam Const General: cooperative, comfortable, disheveled and does not appear intoxicated Nutritional Appearance: average body habitus and well nourished Orientation: awake and oriented x3 Limitations: physical limitations (hx aspergers) HENMT Teeth and gingiva: abnormal tooth or associated gingiva lower right first molar tender and poor dentition Teeth image: 1. Dental caries extending into dentin 2. Dental caries extending into dentin no surrounding area area of fluctuance or sign of abscess Course Vital Signs Vital signs: Vital Signs Temperature 36.8 C 01/09/22 14:50 Pulse 91 H 01/09/22 14:50 Respiratory Rate 16 01/09/22 14:50 Blood Pressure 134/79 01/09/22 14:50 Pulse Oximetry 99 01/09/22 14:50 Temperature 36.8 C 01/09/22 14:50 Temperature Source Temporal Artery Scan 01/09/22 14:50 Pulse 91 H 01/09/22 14:50 Respiratory Rate 16 01/09/22 14:50 Respiratory Effort 01/09/22 14:52 Blood Pressure 134/79 01/09/22 14:50 Blood Pressure Position Sitting 01/09/22 14:50 Pulse Oximetry 99 01/09/22 14:50 Oxygen Delivery Method Room Air 01/09/22 14:50 Oxygen Flow Rate 0 01/09/22 14:50 Pain Level 9 01/09/22 14:54
[2022-01-09] MEDS: Penicillin V POTASSIUM 500 MG TAB PO (15:21)
[2022-01-09] MEDS: Benzocaine 20% Gel 30 GM JAR MM (15:21)
--- NOTE | 2022-01-09 15:38 | NUR.NOTE ---
Nursing Note: follow up to establish pcp and dentist given to healthcare analyst
--- NOTE | 2022-01-11 15:17 | CMACTNOTE_ITS ---
- If Service Date Differs Date of service: 01/11/22 Time of Service: 15:17 Care Management Activity Note Fernanda presents in the ED for right-sided dental pain. At the request of ED provider, GENARO coordinates a referral to Anish Villatoro MD, of [facility], on-call provider, to assist Fernanda in obtaining a routine follow up appointment and in establishing care with a PCP. She has Medicare and Medicaid for insurance.
== END 2022-01-09 15:36 | disposition home or self-care (01) ==
LOC: ER 15:27
PROVIDERS: Emergency Provider Registered Nurse Emergency
DX: R68.84 Jaw pain (principal); K02.9 Dental caries, unspecified
CPT/HCPCS: 99283

== ENCOUNTER 2022-02-19 12:23 | Emergency (ER) | payer MEDICARE, MEDICAID, SELFPAY ==
[2022-02-19 12:30] VITALS: BP 143/84; PULSE 80; RESP 16; TEMP 37.2; O2SAT 98
--- NOTE | 2022-02-19 15:35 | NUR.NOTE ---
Nursing Note: Ernst Alexis pt left without being seen [id number]
== END 2022-02-19 15:31 | disposition left before discharge ==
DX: Z53.21 Procedure and treatment not carried out due to patient leaving prior to being seen by health care provider (principal)

== ENCOUNTER → 2024-02-10 08:10 | Outpatient (BNVA) | payer MEDICARE, MEDICAID, SELFPAY | PROVIDERS: Visit Provider Psychiatry & Neurology Neurology | DX: H93.13 Tinnitus, bilateral (principal); R51.9 Headache, unspecified; H93.293 Other abnormal auditory perceptions, bilateral | CPT/HCPCS: 99213 ==

== ENCOUNTER 2024-04-21 17:06 | Emergency (ER) | payer MEDICARE, MEDICAID, SELFPAY ==
[2024-04-21 17:10] VITALS: BP 121/84; PULSE 90; RESP 16; TEMP 36.8; O2SAT 99
--- NOTE | 2024-04-21 18:00 | NUR.NOTE ---
Nursing Note:pt attempted to provide urine sample but was heavily contaminated with menses, will attempt recollection when possible
[2024-04-21 19:17] LABS: Bilirubin Negative (Negative); Blood Large (Negative); Clarity Sl Cloudy (Clear); Glucose Negative (Negative); Ketones Negative (Negative); Leukocyte Esterase Small (Negative); Nitrite Positive (Negative); Specific Gravity 1.015 (1.005-1.025); Urobilinogen 0.2 mg/dL (Up to 0.2); pH 6.5 (5-8)
[2024-04-21 19:32] LABS: C & S Indicated? Yes; RBC >50 HPF (0-2)
--- NOTE | 2024-04-21 19:42 | W.ED.GENAD ---
Discharge Plan Disposition Patient Disposition: Home Condition: Stable Discharge Details Clinical Impression: Urinary tract infection Primary Care Provider: None,None ED Provider: Rubio Garcia Home Meds and New Rx's Prescriptions: New cefpodoxime 100 mg tablet 100 mg PO BID 5 Days Qty: 10 0RF Rx Instructions: must administer with a meal/food No Action acetazolamide 250 mg tablet 250 mg PO BID Qty: 180 3RF Discharge Instructions Instructions: Urinary Tract Infection, Adult ED Additional Instructions: Please follow-up with your primary care physician. Please take medication as prescribed. Return to the emerged part for any worsening symptoms HPI General Date/Time Provider Initiated Documentation: 04/21/24 17:30. HPI Narrative: 28-year-old female presents with lower suprapubic and left abdominal discomfort over the last couple hours, consistent with prior UTI symptoms, patient has had recurrent UTIs, denies back pain nausea vomiting fevers chills or other systemic signs of illness. Endorses being on her menstrual period currently. Related Data Home Medications ?Medication ?Instructions ?Recorded ?Confirmed acetazolamide 250 mg tablet 250 mg PO BID #180 tabs 02/10/24 04/21/24 cefpodoxime 100 mg tablet 100 mg PO BID 5 days #10 tabs 04/21/24 Previous Rx's ?Medication ?Instructions ?Recorded acetazolamide 250 mg tablet 250 mg PO BID #180 tabs 02/10/24 cefpodoxime 100 mg tablet 100 mg PO BID 5 days #10 tabs 04/21/24 Allergies Allergy/AdvReac Type Severity Reaction Status Date / Time No Known Allergies Allergy Verified 04/21/24 17:14 General Stated Complaint: Abd Prob GAGE: 3 Exam Narrative Exam Narrative: Alert oriented interactive Moist mucous membranes tongue secretions Abdomen soft nontender nondistended nonperitoneal Speaking full sentences no respiratory distress Ambulatory without assistance alert moving all extremities no ataxia Course Vital Signs Vital signs: Vital Signs Temperature 36.8 C 04/21/24 17:10 Pulse 90 04/21/24 17:10 Respiratory Rate 16 04/21/24 17:10 Blood Pressure 121/84 04/21/24 17:10 Pulse Oximetry 99 04/21/24 17:10 Temperature 36.8 C 04/21/24 17:10 Pulse 90 04/21/24 17:10 Respiratory Rate 16 04/21/24 17:10 Respiratory Effort Normal, Non-Labored 04/21/24 17:14 Blood Pressure 121/84 04/21/24 17:10 Pulse Oximetry 99 04/21/24 17:10 Pain Level 4 04/21/24 17:10 Lab/Test Results Lab/Test Results: 04/21/24 18:55 Urine - Reflex from Ua Urine Culture - Pending Laboratory Tests Range/Units 04/21/24 18:55 Urine Color (Yellow) [place] Urine Clarity (Clear) Sl Cloudy Urine pH (5-8) 6.5 Ur Specific [place] (1.005-1.025) 1.015 Urine Protein (Neg-Trace) mg/dL 30 H Urine Ketones (Negative) mg/dL Negative Urine Blood (Negative) Large H Urine Nitrite (Negative) Positive H Urine Bilirubin (Negative) Negative Urine Urobilinogen (Up to 0.2) mg/dL 0.2 Ur Leukocyte Esterase (Negative) Small H Urine RBC (0-2) HPF >50 H Urine WBC Not Applicable Ur Epithelial Cells Not Applicable Urine Crystals Not Applicable Urine Bacteria Not Applicable Urine Mucus Not Applicable Ur Culture Indicated? Yes Urine Glucose (Negative) mg/dL Negative POC- Test(urine) Negative Medical Decision Making 28-year-old female presents with suprapubic and left lower quadrant abdominal discomfort for the last couple of hours symptoms consistent with her prior UTIs, no back pain fever nausea vomiting or systemic signs of illness, nonperitoneal examination, resting comfortably, patient is currently on her menstrual period, evidence of leukoesterase and nitrate positive urine consistent with UTI. No systemic signs of illness. Will start cefpodoxime. Low suspicion for colitis enteritis ovarian cyst torsion or cholecystitis given history and physical. Urine negative. Home care instructions and return precautions given Quality:SDOH Health Related Social Needs: No Data to Display PFSH All Active Problems (Updated 04/21/24 @ 19:44 by Rubio Garcia MD) Sensorineural hearing loss, bilateral (Acute) Pain due to dental caries (Acute) Acute otitis media, right (Acute) Urinary tract infection (Acute) Headache (Acute) Abnormal auditory perception (Acute 06/29/13) Anxiety (Acute 08/20/12) some depression Asperger's disorder (Acute 08/20/12) Subjective tinnitus (Acute 06/29/13) Medical History Pseudotumor cerebri (11/03/13) evaluated for in 2014 with borderline elevated OP of 31 secondary to obesity and otherwise negative MRI/ophtho exam; Surgical History Tonsillectomy and adenoidectomy Myringotomy w/ PE (pressure equalizing) tubes Family History Mother Tinnitus Hypertension Hyperlipidemia COPD (chronic obstructive pulmonary disease) Father COPD (chronic obstructive pulmonary disease) Skin cancer Maternal Grandmother Cancer Social History Smoking/Tobacco Use Status: Never Smoking risk assessment performed?: Yes Alcohol Intake: never Drug use: Never Substance use type: does not use Household members: family Housing: apartment Education Level: high school Details: Completed 9th grade and some 10th grade current occupation: Disabled Pets and animals: Yes Seatbelt use: always Do you feel safe at home: Yes Do you feel safe in your relationship?: Yes
[2024-04-21] MEDS: Cefpodoxime 200 MG TAB PO (19:47)
[2024-04-21 19:55] VITALS: BP 122/86; PULSE 86; RESP 16; TEMP 36.8; O2SAT 98
== END 2024-04-21 19:57 | disposition home or self-care (01) ==
PROVIDERS: Emergency Provider Emergency Medicine
DX: N39.0 Urinary tract infection, site not specified (principal)
CPT/HCPCS: 81025; 87077; 99283; 81003; 81015; 87086; 87186

== ENCOUNTER 2024-05-25 11:46 | Emergency (ER) | payer MEDICARE, MEDICAID, SELFPAY ==
[2024-05-25 11:49] VITALS: BP 135/85; PULSE 100; RESP 16; TEMP 36.1; O2SAT 98
--- NOTE | 2024-05-25 12:08 | ED.GENADUL_ITS ---
Discharge Plan Disposition Patient Disposition: Home Discharge Details Clinical Impression: Acute foreign body of left ear Primary Care Provider: None,None ED Provider: Reg Borges Home Meds and New Rx's Prescriptions: Continued acetazolamide 250 mg tablet 250 mg PO BID Qty: 180 3RF Discharge Instructions Instructions: Foreign Body in Ear Additional Instructions: You were seen in the emergency department for your ear discomfort. You are found to have a small hair in your ear which was rinsed. Please do not use Q- tips or any tweezers in your ear. Please flush your ear as we discussed. Please return to the emergency department if you develop difficulty hearing seeing or take any falls. HPI General Date/Time Provider Initiated Documentation: 05/25/24 12:08 . HPI Narrative: MDM This is an overall very well-appearing afebrile and initially tachycardic 20-year-old female with left ear discomfort and reassuring physical exam with possible irritation caused by hair for which patient received canal irrigation with nursing. No proptosis to suggest mastoiditis. Given no headache I was not suspicious for CVA so I did not complete a comprehensive neurological examination. No nuchal rigidity to suggest meningitis. Good range of motion and neck so I did not feel that the patient had retropharyngeal abscess. Furthermore she is not having any sore throat. No rash to suggest zoster. No pain or proportion to suggest necrotizing soft tissue infection. No signs of TM bulging or erythema to suggest acute otitis media. No signs of otitis externa no recent swimming. I counseled patient on avoiding any insertions of any foreign bodies in her ears. I advised that she return to the ED if she developed worsening pain could not hear or became dizzy. She understood her return indications and she was discharged with an empiric trial of expectant outpatient management. HPI This is a 28-year-old female with history of Asperger's disorder and abnormal auditory perception arrived emergency department via private vehicle in setting of left ear discomfort. Patient felt as if she caught something in her ear approximately 1 hour ago. She has seen ENT in the past for similar symptoms. She attempted to clean out her ear using some tweezers and Q-tips. This did not improve her symptoms. She denies any falls. No headaches. No fevers nausea nor vomiting. Exam General: Well-appearing in no acute distress speaking in complete sentences. Head: Normocephalic, atraumatic. Eye: Extraocular eye movements intact. No conjunctival injection. No scleral icterus. Ear, nose, mouth, throat: Right TM clear. Left external auditory canal with several hairs. Left TM clear. No erythema. No left ear proptosis. No rash to left ear. Normal voice, handling secretions normally. Neck: Trachea midline. Cardiovascular: Well-perfused distal extremities. Respiratory: Nonlabored respiration. Gastrointestinal: Nondistended abdomen. Musculoskeletal: No edema. Moving all 4 extremities spontaneously. Skin: Normal for age and race, grossly normal temperature and turgor. No acute rash. Neurologic: Alert and appropriate, no apparent acute deficits. Psychiatric: Mood and manner are appropriate. Grooming and personal hygiene are appropriate. Related Data Home Medications ?Medication ?Instructions ?Recorded ?Confirmed acetazolamide 250 mg tablet 250 mg PO BID #180 tabs 02/10/24 05/25/24 Previous Rx's ?Medication ?Instructions ?Recorded acetazolamide 250 mg tablet 250 mg PO BID #180 tabs 02/10/24 Allergies Allergy/AdvReac Type Severity Reaction Status Date / Time No Known Allergies Allergy Verified 05/25/24 11:51 General Stated Complaint: EarProblem GAGE: 4 Course Vital Signs Vital signs: Vital Signs Temperature 36.1 C L 05/25/24 11:49 Pulse 100 H 05/25/24 11:49 Respiratory Rate 16 05/25/24 11:49 Blood Pressure 135/85 05/25/24 11:49 Pulse Oximetry 98 05/25/24 11:49 Temperature 36.1 C L 05/25/24 11:49 Pulse 100 H 05/25/24 11:49 Respiratory Rate 16 05/25/24 11:49 Respiratory Effort Normal 05/25/24 11:51 Blood Pressure 135/85 05/25/24 11:49 Pulse Oximetry 98 05/25/24 11:49 Pain Level 5 05/25/24 11:49 Medical Decision Making Quality:SDOH Health Related Social Needs: No Data to Display PFSH All Active Problems (Updated 05/25/24 @ 12:45 by Reg Borges MD) Acute foreign body of left ear (Acute) Sensorineural hearing loss, bilateral (Acute) Pain due to dental caries (Acute) Acute otitis media, right (Acute) Urinary tract infection (Acute) Headache (Acute) Abnormal auditory perception (Acute 06/29/13) Anxiety (Acute 08/20/12) some depression Asperger's disorder (Acute 08/20/12) Subjective tinnitus (Acute 06/29/13) Medical History Pseudotumor cerebri (11/03/13) evaluated for in 2013 with borderline elevated OP of 31 secondary to obesity and otherwise negative MRI/ophtho exam; Surgical History Tonsillectomy and adenoidectomy Myringotomy w/ PE (pressure equalizing) tubes Family History Mother Tinnitus Hypertension Hyperlipidemia COPD (chronic obstructive pulmonary disease) Father COPD (chronic obstructive pulmonary disease) Skin cancer Maternal Grandmother Cancer Social History Smoking/Tobacco Use Status: Never Smoking risk assessment performed?: Yes Alcohol Intake: never Drug use: Never Substance use type: does not use Household members: family Housing: apartment Education Level: high school Details: Completed 9th grade and some 10th grade current occupation: Disabled Pets and animals: Yes Seatbelt use: always Do you feel safe at home: Yes Do you feel safe in your relationship?: Yes
[2024-05-25 12:40] VITALS: PULSE 98; O2SAT 100
== END 2024-05-25 13:08 | disposition home or self-care (01) ==
PROVIDERS: Emergency Provider Emergency Medicine
DX: T16.2XXA Foreign body in left ear, initial encounter (principal); F84.5 Asperger's syndrome; H93.299 Other abnormal auditory perceptions, unspecified ear; W44.8XXA Other foreign body entering into or through a natural orifice, initial encounter
CPT/HCPCS: 99283

== ENCOUNTER → 2024-06-11 11:14 | Outpatient (BNVA) | payer MEDICARE, MEDICAID, SELFPAY | PROVIDERS: Visit Provider Psychiatry & Neurology Neurology | DX: H93.13 Tinnitus, bilateral (principal); H93.293 Other abnormal auditory perceptions, bilateral; R51.9 Headache, unspecified | CPT/HCPCS: 99214 ==